=== PATIENT | male | born 1995 ===

== ENCOUNTER 2023-07-01 21:59 | Emergency (ER) | payer OTHER ==
[~2023-07-01] VITALS: Ht 188 cm; Wt 131.0 kg
[2023-07-01 22:06] VITALS: BP 144/121; PULSE 68; TEMP 98.1; O2SAT 97
[2023-07-01] MEDS: TETanus/Pertussis (Acell)/Diphther VAC/PF (Tdap-Adult) 0.5ml syringe IMVAC ONE (22:15)
[2023-07-01 22:56] VITALS: RESP 18
== END 2023-07-02 00:30 | disposition left against medical advice (07) ==
LOC: ER 22:00
DX: S00.81XA Abrasion of other part of head, initial encounter (principal); S09.90XA Unspecified injury of head, initial encounter; F10.129 Alcohol abuse with intoxication, unspecified; Y90.9 Presence of alcohol in blood, level not specified; X58.XXXA Exposure to other specified factors, initial encounter; Y93.89 Activity, other specified; Y92.89 Other specified places as the place of occurrence of the external cause; Y99.8 Other external cause status
CPT/HCPCS: 70450; 73590; 99284